=== PATIENT | male | born 1990 | race Caucasian/White ===

== ENCOUNTER 2019-10-18 12:03 | Emergency (ER) | payer OTHER ==
[~2019-10-18] VITALS: Ht 190.5 cm; Wt 168.2 kg
[2019-10-18 12:24] VITALS: BP 156/71
--- NOTE | 2019-10-18 12:45 | RAD ---
Three-view left ankle dated 10/18/2019. No comparison available. CLINICAL INDICATION: Pain after injury. FINDINGS: 3 views of left ankle show normal bony alignment. No displaced fracture. There is mild degenerative change of the tibiotalar joint and subtalar joints. Mild soft tissue swelling. No periostitis or bone destruction. Small linear metallic foreign body within the plantar soft tissues near the midshaft metatarsals measures about 1.1 cm. IMPRESSION: 1. No acute bony abnormality. 2. Small linear metallic foreign body within the soft tissues of the midfoot. Electronically signed by: Mj Lovell MD (10/18/2019 12:42 PM) [id number]
--- NOTE | 2019-10-18 12:48 | PHYS DOC ---
Past History Past Medical History: No Pertinent History Past Surgical History: No Surgical History Alcohol Use: None General Adult EDM: Chief Complaint: ANKLE PROBLEM HPI: HPI: Patient is a 29-year-old male who presented to ER today for evaluation of left ankle pain. Patient said he was at work today, he was walking and twisted his left ankle, having pain since. Patient said he had previous injury to his left ankle in the past. Patient denies any pain on his left leg all his left knee. She denies any pain on his left foot. Review of Systems: Review of Systems: Constitutional: Denies fever or chills Eyes: Denies change in visual acuity HENT: Denies nasal congestion or sore throat Respiratory: Denies cough or shortness of breath Cardiovascular: Denies chest pain or edema GI: Denies abdominal pain, nausea, vomiting, bloody stools or diarrhea : Denies dysuria Musculoskeletal: Denies back pain . Positive for left ankle pain Integument: Denies rash Neurologic: Denies headache, focal weakness or sensory changes Endocrine: Denies polyuria or polydipsia Lymphatic: Denies swollen glands Psychiatric: Denies depression or anxiety Heart Score: Risk Factors: Risk Factors: DM, Current or recent (<one month) smoker, HTN, HLP, family history of CAD, obesity. Risk Scores: Score 0 - 3: 2.5% MACE over next 6 weeks - Discharge Home Score 4 - 6: 20.3% MACE over next 6 weeks - Admit for Clinical Observation Score 7 - 10: 72.7% MACE over next 6 weeks - Early Invasive Strategies Allergies: Allergies: Allergies Coded Allergies Type Severity Reaction Last Updated Verified No Known Drug Allergies 10/18/19 No Physical Exam: PE: Constitutional: Well developed, well nourished, no acute distress, non-toxic appearance. [] HENT: Normocephalic, atraumatic, bilateral external ears normal, oropharynx moist, no oral exudates, nose normal. [] Eyes: PERRLA, EOMI, conjunctiva normal, no discharge. [] Neck: Normal range of motion, no tenderness, supple, no stridor. [] Cardiovascular:Heart rate regular rhythm, no murmur [] Lungs & Thorax: Bilateral breath sounds clear to auscultation [] Abdomen: Bowel sounds normal, soft, no tenderness, no masses, no pulsatile masses. [] Skin: Warm, dry, no erythema, no rash. [] Back: No tenderness, no CVA tenderness. [] Extremities: Left ankle tender to palpation at the left lateral malleolus area, there is no swelling, there is no tenderness to palpation along the left leg or left knee area. There is no tenderness to palpation ON left foot. Neurologic: Alert and oriented X 3, normal motor function, normal sensory function, no focal deficits noted. [] Psychologic: Affect normal, judgement normal, mood normal. [] Current Patient Data: Vital Signs: Vital Signs Date Time Temp Pulse Resp B/P (MAP) Pulse Ox O2 Delivery O2 Flow Rate FiO2 10/18/19 12:24 98.0 80 18 156/71 (99) 96 EKG: EKG: [] Radiology/Procedures: Radiology/Procedures: [][place] [address] IMAGING REPORT Signed PATIENT: LAURA HUNTER ACCOUNT: [id number] : 1990 LOCATION: ER AGE: 29 SEX: M EXAM STATUS: REG ER ORD. PHYSICIAN: FANY CALVIN DO REASON: left ankle injury PROCEDURE: ANKLE LEFT 3V Three-view left ankle dated 10/18/2019. No comparison available. CLINICAL INDICATION: Pain after injury. FINDINGS: 3 views of left ankle show normal bony alignment. No displaced fracture. There is mild degenerative change of the tibiotalar joint and subtalar joints. Mild soft tissue swelling. No periostitis or bone destruction. Small linear metallic foreign body within the plantar soft tissues near the midshaft metatarsals measures about 1.1 cm. IMPRESSION: 1. No acute bony abnormality. 2. Small linear metallic foreign body within the soft tissues of the midfoot. Electronically signed by: Mj Bingham MD (10/18/2019 12:42 PM) [id number] DICTATED AND SIGNED BY: MJ BINGHAM MD DATE: 10/18/19 1242 CC: PCP,FRANCISCO; FANY CALVIN DO ~ Course & Med Decision Making: Course & Med Decision Making Pertinent Labs and Imaging studies reviewed. (See chart for details) [] Anali Disclaimer: Anali Disclaimer: This electronic medical record was generated, in whole or in part, using a voice recognition dictation system. Departure Departure: Impression: Primary Impression: Left ankle sprain Disposition: 01 HOME/RESIDENCE PRIOR TO ADM Condition: STABLE Referrals: PCP,NO (PCP) PLEASE FOLLOW UP WITH YOUR FAMILY DOCTOR FOR OUTPATIENT EVALUATION WITH MRI OF YOUR LEFT ANKLE. Patient Instructions: Ankle Sprain, Acute, with Phase I Rehab-SportsMed Justification of Admission: Justification of Admission: Justification of Admission Dx: N/A FANY CALVIN DO Oct 18, 2019 12:48
== END 2019-10-18 13:24 | disposition home or self-care (01) ==
LOC: ER 12:03
DX: S93.402A Sprain of unspecified ligament of left ankle, initial encounter (principal); X50.9XXA Other and unspecified overexertion or strenuous movements or postures, initial encounter; Y93.01 Activity, walking, marching and hiking; Y92.89 Other specified places as the place of occurrence of the external cause; Y99.0 Civilian activity done for income or pay
CPT/HCPCS: 73610; 99283